=== PATIENT | female | born 1970 | race Hispanic/Latino ===

== ENCOUNTER → 2019-10-14 | Day surgery (SDC) | payer OTHER ==
[~2019-10-14] MED LIST: BALANCED SALT SOLN (OPTH) 15 ML BTL IO ONE; FENTANYL CITRATE/PF 100MCG/2 ML INJ ONE; LIDOCAINE 2% /EPINEPHRINE 20 ML SDV INJ ONE; MIDAZOLAM HCL 2 MG/2 ML VIAL ONE; NEOMYCIN/POLYMYXIN/DEX (OPTH) 3.5 GM TUBE ONE; POVIDONE IODINE 5% (OPTH) 30 ML BTL ONE
--- OUTSIDE RECORDS SUMMARY | 2019-10-14 10:57 | XMS REPORT ---
[facility] Address Unknown Phone Unavailable Care Team Providers Care Assistant Merchandise Manager Name Role Phone Unavailable Unavailable Problems This patient has no known problems. Allergies, Adverse Reactions, Alerts This patient has no known allergies or adverse reactions. Medications This patient has no known medications. Results Test Description Test Time Test Comments Text Results Atomic Results Result Comments DIAG MAMM BILATERAL CAD DIGITAL 2018-09-26 12:30:55 - DIAG MAMM BILATERAL CAD DIGITALBILATERAL DIGITAL DIAGNOSTIC MAMMOGRAM WITH CAD: 09/26/2018CLINICAL: Follow up to previous exam. Current mammographic images were evaluated by either a Connect[employer] M-Vu or a [employer] ImageChecker CAD (computer aided detection system). Comparison is made to exams dated 09/19/2017 mammogram, 11/17/2015 mammogram, and 11/11/2014 mammogram - [facility]. The tissue of both breasts is heterogeneously dense. This may lower the sensitivity of mammography. Benign-appearing masses are again noted bilaterally, stable from prior study.No suspicious mass, architectural distortion, malignant type calcification, or lymph node abnormality detected. INCOMPLETE ASSESSMENT: ADDITIONAL IMAGING EVALUATION RECOMMENDEDCorrelation with bilateral breast ultrasound follows as below:- BREAST ULTRASOUND BILATERALULTRASOUND OF BOTH BREASTS AND BOTH AXILLA: 09/26/2018Comparison is made to exams dated 09/19/2017 mammogram, 11/17/2015 mammogram, and 11/11/2014 mammogram - [facility]. Color flow ultrasound of both breasts and both axilla was performed. Chambers scale images of the real-time examination were reviewed. RIGHT BREAST:At the 9 o'clock position, 10 cm from the nipple, there is a benign- appearing fibroadenoma or intramammary lymph node measuring 0.7 x 0.4 x 0.4 cm.At the 10 o'clock position, 8 cm from the nipple, there is a benign-appearing fibroadenoma measuring 0.5 x 0.7 x 0.3 cm.At the 10 o'clock position, 10 cm from the nipple, there is a benign-appearing fibroadenolipoma measuring 0.7 x 0.5 x 0.9 cm.LEFT BREAST:At the 8 to 9 o'clock position, 8 cm from the nipple, there is a benign-appearing fibroadenoma measuring 1.3 x 0.7 x 0.8 cm. This is not significantly changed from the prior study at which time it measured 1.4 x 0.6 x 0.9 cm.No abnormalities were seen sonographically in either axilla. IMPRESSION: BENIGN Benign appearing fibroadenomatous changes. There is no sonographic evidence of malignancy. Resume annual mammogram screening schedule is recommended. Emerita chenq/:09/26/2018 12:30:55 Entry: - 10/01/2018 08:23:50Imaging Technologist: Ирина GILL, [facility] sent: BIRADS 1-2 Combo FU Letter Mammogram BI-RADS: 0 Indeterminate Ultrasound BI-RADS: 2 Benign BREAST ULTRASOUND BILATERAL 2018-09-26 12:30:55 - DIAG MAMM BILATERAL CAD DIGITALBILATERAL DIGITAL DIAGNOSTIC MAMMOGRAM WITH CAD: 09/26/2018CLINICAL: Follow up to previous exam. Current mammographic images were evaluated by either a ConnectQuest M-Vu or a [employer] ImageChecker CAD (computer aided detection system). Comparison is made to exams dated 09/19/2017 mammogram, 11/17/2015 mammogram, and [facility]. The tissue of both breasts is heterogeneously dense. This may lower the sensitivity of mammography. Benign-appearing masses are again noted bilaterally, stable from prior study.No suspicious mass, architectural distortion, malignant type calcification, or lymph node abnormality detected. INCOMPLETE ASSESSMENT: ADDITIONAL IMAGING EVALUATION RECOMMENDEDCorrelation with bilateral breast ultrasound follows as below:- BREAST ULTRASOUND BILATERALULTRASOUND OF BOTH BREASTS AND BOTH AXILLA: 09/26/2018Comparison is made to exams dated 09/19/2017 mammogram, 11/17/2015 mammogram, and 11[facility]11/2014 [facility]. Color flow ultrasound of both breasts and both axilla was performed. Chambers scale images of the real-time examination were reviewed. RIGHT BREAST:At the 9 o'clock position, 10 cm from the nipple, there is a benign- appearing fibroadenoma or intramammary lymph node measuring 0.7 x 0.4 x 0.4 cm.At the 10 o'clock position, 8 cm from the nipple, there is a benign-appearing fibroadenoma measuring 0.5 x 0.7 x 0.3 cm.At the 10 o'clock position, 10 cm from the nipple, there is a benign-appearing fibroadenolipoma measuring 0.7 x 0.5 x 0.9 cm.LEFT BREAST:At the 8 to 9 o'clock position, 8 cm from the nipple, there is a benign-appearing fibroadenoma measuring 1.3 x 0.7 x 0.8 cm. This is not significantly changed from the prior study at which time it measured 1.4 x 0.6 x 0.9 cm.No abnormalities were seen sonographically in either axilla. IMPRESSION: BENIGN Benign appearing fibroadenomatous changes. There is no sonographic evidence of malignancy. Resume annual mammogram screening schedule is recommended. Emerita valencia/:09/26/2018 12:30:55 Entry: - 10/01/2018 08:23:50Imaging Technologist: Ирина GILL, [facility]: BIRADS 1-2 Combo FU Letter Mammogram BI-RADS: 0 Indeterminate Ultrasound BI-RADS: 2 Benign
[2019-10-14 15:10] VITALS: BP 102/60
--- NOTE | 2019-10-24 19:41 | Operative Report ---
DATE OF PROCEDURE: 10/14/2019 SURGEON: Franklin Dumont MD PREOPERATIVE DIAGNOSIS: Right nasal pterygium. POSTOPERATIVE DIAGNOSIS: Right nasal pterygium. PROCEDURE: 1. Pterygium excision, right eye nasal. 2. Amniotic membrane graft, placement right eye nasal. 3. Superficial keratectomy, right eye nasal. 4. Mitomycin C 0.025%, 60 seconds. ANESTHESIA: MAC. COMPLICATIONS: None. DESCRIPTION OF PROCEDURE: The patient was taken to the operating where she was prepped and draped in the usual sterile ophthalmic way. A lid speculum was placed in the right eye. A 6-0 sterile stay suture was placed at the limbus temporally and the pterygium was localized. It was marked using a marking pen and 0.2 mL of lidocaine 2% with epinephrine were injected to the pterygium. The pterygium was incised and carefully removed away from the sclera and cornea using 0.12 forceps and Valdemar scissors. Once it was removed, it was sent to Pathology. A wet-field cautery was used to control bleeding. A bur was used to perform a superficial keratectomy to remove the residual debris from the cornea. Pterygium was sent to pathology. The graft measured 10 x 15 mm, it was secured using fibrin and thrombin glue. Excess glue and tissue were removed using 0.12 forceps and Valdemar scissors. Prior to putting the graft there, a cottonoid was soaked in 0.025% mitomycin C and placed in the edge of the conj for 60 seconds. Copious amounts of BSS solution were used to irrigate this off. The patient had Maxitrol ointment patch and Gregorio shield placed on the eye. The patient tolerated the procedure well, and was sent to recovery room in good condition. The patient will be seen in my office tomorrow. Amniotic membrane serial number is [id number]. Franklin Dumont MD SES/MODL /[id number]
== END | disposition home or self-care (01) ==
LOC: OR 10:49
PROVIDERS: ATTEND Ophthalmology
DX: H11.051 Peripheral pterygium, progressive, right eye (principal); M54.9 Dorsalgia, unspecified
CPT/HCPCS: 88304; J2001; J2250; J3010; V2790

== ENCOUNTER → 2020-03-17 | Day surgery (SDC) | payer OTHER ==
[2020-03-12 16:47] LABS: BASOPHILS % 0.5 % (0.0-1.0); EOSINOPHILS # (AUTO) 0.1 (0.0-0.4); EOSINOPHILS % 1.4 % (0.0-6.0); HEMATOCRIT 37.9 % (34.2-44.1); HEMOGLOBIN 13.1 g/dL (12.0-16.0); LYMPHOCYTES # (AUTO) 1.9 (1.0-3.2); LYMPHOCYTES % 29.3 % (18.0-39.1); MEAN CORPUSCULAR HGB CONC 34.6 g/dL (31-35); MEAN CORPUSCULAR VOLUME 83.8 fL (81-99); MONOCYTES # (AUTO) 0.4 (0.2-0.8); MONOCYTES % 6.6 % (4.4-11.3); NEUTROPHILS % 61.7 % (38.7-80.0); PLATELET COUNT 242 x10e3/uL (140-360); RED BLOOD COUNT 4.52 x10e6/uL (3.6-5.1)
[2020-03-12 17:03] LABS: ALANINE AMINOTRANSFERASE 25 IU/L (0-55); ALBUMIN/GLOBULIN RATIO 1.1 (0.8-2.0); ALKALINE PHOSPHATASE 48 IU/L (40-150); ANION GAP 11.7 mmol/L (8-16); BLOOD UREA NITROGEN 11 mg/dL (7-26); BUN/CREATININE RATIO 16 (6-25); CARBON DIOXIDE 25 mmol/L (22-29); CHLORIDE 104 mmol/L (98-107); CREATININE, SERUM 0.69 mg/dL (0.57-1.11); EST GLOMERULAR FILTRATION RATE > 60 ML/MIN (60-); GLUCOSE 99 mg/dL (74-118); POTASSIUM 3.7 mmol/L (3.5-5.1); SODIUM 137 mmol/L (136-145)
[~2020-03-17] MED LIST changes: -BALANCED SALT SOLN (OPTH) 15 ML BTL IO ONE; +BUPIVACAINE 0.25%/EPI 30ML SDV INJ ONE; +CEFOXITIN 1GM/ D5W 50ML 100 ML IV ONE; -FENTANYL CITRATE/PF 100MCG/2 ML INJ ONE; +GLYCOPYRROLATE INJ 0.2 MG/ML VIAL ONE; +KETOROLAC TROMETHAMINE 30 MG/ML VIAL ONE; -LIDOCAINE 2% /EPINEPHRINE 20 ML SDV INJ ONE; +LIDOCAINE HCL 2% LOCAL INJ 5 ML SDV VIAL INJ ONE; -MIDAZOLAM HCL 2 MG/2 ML VIAL ONE; -NEOMYCIN/POLYMYXIN/DEX (OPTH) 3.5 GM TUBE ONE; +NEOSTIGMINE 1 MG/ML 10ML VIAL ONE; +ONDANSETRON HCL INJ 2MG/ML 2ML 2 MG/ML VIAL ONE; -POVIDONE IODINE 5% (OPTH) 30 ML BTL ONE; +PROPOFOL IV EMULSION 10 MG/ML 20 ML VIAL ONE; +ROCURONIUM BROMIDE 10 MG/ML 5ML VIAL IV ONE; +SEVOFLURANE INHAL SOLN 250 ML PEN BTL ONE
[2020-03-17 14:20] VITALS: BP 115/65
--- NOTE | 2020-04-01 00:40 | Operative Report ---
DATE OF PROCEDURE: 03/17/2020 SURGEON: Chris Florez MD PREOPERATIVE DIAGNOSIS: Cholecystitis. POSTOPERATIVE DIAGNOSIS: Cholecystitis. OPERATIVE PROCEDURE: Laparoscopic cholecystectomy. ANESTHESIA: General. INDICATION FOR SURGERY: The patient is a 49-year-old female with history of recurrent epigastric pain and gallstones seen on ultrasound. She consented for laparoscopic cholecystectomy. Attendant risks have been discussed. PROCEDURE FINDINGS: Chronic cholecystitis. DESCRIPTION OF PROCEDURE: The patient was brought to the OR, intubated. The abdomen was prepped and draped in sterile fashion. An infraumbilical incision was made and a 10 mm port inserted. Insufflation then began under direct vision, other ports I placed in the epigastric and right upper quadrant. Gallbladder distended and chronically inflamed. Fundus retracted in cephalad direction. Next, the gallbladder retracted laterally with blunt dissection. We isolated the cystic artery, triply clipped and divided. Cystic duct was isolated and junction of the common bile duct was noted before triple clipping the cystic duct, approximately 5 mm away from the junction and divided the cystic duct between the clips. The gallbladder detached from the liver with cautery and taken out through the umbilical port site. Operative field was then irrigated. Hemostasis achieved. All ports removed under direct vision. Fascia closed with 0 Vicryl. Skin was closed with subcuticular stitch. The patient was extubated and transported to recovery room. BLOOD LOSS: 5 mL. Chris Florez MD DNL/MODL /[id number]
== END | disposition home or self-care (01) ==
LOC: OR 10:35
PROVIDERS: ATTEND Surgery
DX: K80.10 Calculus of gallbladder with chronic cholecystitis without obstruction (principal); Z01.810 Encounter for preprocedural cardiovascular examination; Z01.812 Encounter for preprocedural laboratory examination; Z11.59 Encounter for screening for other viral diseases; Z68.30 Body mass index [BMI] 30.0-30.9, adult
CPT/HCPCS: 36415; 80053; 85025; 88304; 93005; J1885; J2001; J2405; J2710; U0002